=== PATIENT | male | born 1970 | race Caucasian/White ===

== ENCOUNTER → 2020-03-10 07:26 | Outpatient (CLI) | payer BC, SELFPAY ==
--- NOTE | 2020-03-10 07:33 | CT_ITS ---
STUDY: CTA NECK WITH CONTRAST REASON FOR EXAM: Male, 49 years old. CAROTID STENOSIS SEEN ON US, LT EYE PARTIAL BLINDNESS, HX-HTN RADIATION DOSAGE (If Supplied By Facility): CTDIvol = ( 18.09 ) mGy, DLP = ( 634.29 ) mGycm TECHNIQUE: CT angiography with multi-detector data acquisition was performed from the aortic arch to the skull base following intravenous administration of 100ML ISOVUE 370. MIP images were reconstructed from the axial data set. Post-processing of the angiographic images was performed, with multiplanar reformation and 3D reconstruction. Individualized dose optimization techniques were used for this CT. COMPARISON: None. FINDINGS: AORTIC ARCH: There is atherosclerotic calcific plaque formation of the aortic arch and great vessels arising from the aortic arch, without a hemodynamically significant stenosis. There is a bovine origin of the great vessels with a common origin of the brachiocephalic and left common carotid artery. Normal origin of the left subclavian artery. RIGHT CAROTID ARTERIES: Normal right common carotid artery (CCA). Normal right common carotid bulb. Normal origin of the right internal carotid (ICA) artery without a hemodynamically significant stenosis. Normal visualized cervical portion of the right internal carotid artery. Normal origin of the right external carotid artery (ECA). LEFT CAROTID ARTERIES: Normal left common carotid artery (CCA). Normal left common carotid bulb. There is severe atherosclerotic plaque formation of the origin of the left internal carotid artery with a near complete occlusion. I suspect an ulcerated plaque. Normal visualized cervical portion of the left internal carotid artery. Normal origin of the left external carotid artery (ECA). VERTEBRAL ARTERIES: Normal bilateral vertebral arteries. CT/CTA Neck W/WO Contrast IMPRESSION: Near occlusion at the origin of the left internal carotid artery due to a soft plaque and possible ulceration. Electronically Signed: Dewayne Quiros, at 11:19 EDT , Service support ,
== END ==
PROVIDERS: PCP Nurse Practitioner Primary Care; Referring Provider Surgery Vascular Surgery; Visit Provider Surgery Vascular Surgery
DX: I65.22 Occlusion and stenosis of left carotid artery (principal)
CPT/HCPCS: 70498; Q9967

== ENCOUNTER → 2020-04-03 09:44 | Outpatient (CLI) | payer BC, SELFPAY ==
[2020-03-31 09:12] VITALS: BMI 34.9
[2020-04-03 10:53] LABS: AST(SGOT) 77 U/L (15-37); Alanine Aminotransfer ALT/SGPT 142 U/L (16-61); Albumin, Serum 4.1 g/dL (3.2-5.0); Alkaline Phosphatase 58 U/L (45-117); Cholesterol 256 mg/dL (200); Globulin 3.5 g/dL (2.2-4.2); High Density Lipoprotein 58 mg/dL; Protein, Total 7.6 g/dL (6.4-8.2); Triglycerides 326 mg/dL; Very Low Density Lipoprotein 65 mg/dL (5-40)
== END ==
PROVIDERS: PCP Nurse Practitioner Primary Care; Referring Provider Internal Medicine Cardiovascular Disease; Visit Provider Internal Medicine Cardiovascular Disease
DX: E78.5 Hyperlipidemia, unspecified (principal); G45.3 Amaurosis fugax; I77.9 Disorder of arteries and arterioles, unspecified
CPT/HCPCS: 36415; 80061; 80076

== ENCOUNTER → 2020-04-10 12:42 | Outpatient (CLI) | payer BC, SELFPAY ==
[2020-03-31 09:12] VITALS: BMI 34.9
--- NOTE | 2020-04-10 12:43 | ECHOD_ITS ---
Reason For Study: Pre-op clearance Procedure This was a 2D Doppler, Color Flow transthoracic echocardiogram. Exam performed in department. Left Ventricle Normal size and thickness. The estimated ejection fraction is 65 %. Stage 1 diastolic dysfunction. No regional wall motion abnormalities noted. Right Ventricle Normal size and thickness. Normal systolic function. Atria Normal left atrium. Normal right atrium. Normal atrial septum. Mitral Valve The mitral valve is structurally normal. No prolapse or stenosis seen. Trivial mitral valve insufficiency. Tricuspid Valve Normal tricuspid valve. Unable to estimate RV systolic pressure due to insufficient tricuspid regurgitant envelope. Aortic Valve Normal aortic valve. Trisinus/trileaflet aortic valve. Pulmonic Valve Normal pulmonic valve. Great Vessels Normal aortic root. Normal arch. Normal inferior vena cava. Inferior vena cava collapse with sniff. Pericardium/Pleural No pericardial effusion. MMode/2D Measurements & Calculations LVIDd: 4.3 cm IVSd: 0.95 cm Ao root diam: 3.6 cm LVIDs: 3.1 cm LVPWd: 0.96 cm RVDd: 2.7 cm FS: 27.7 % LAV(MOD-bp): 46.1 ml LVAd ap4: 29.6 cm2 SV(MOD-sp4): 46.3 ml LAV(MOD-bp) Indexed: 21.0 ml/m2 EDV(MOD-sp4): 82.1 ml LAV(MOD-sp2): 44.0 ml EDV(sp4-el): 87.1 ml LAV(MOD-sp4): 43.7 ml LVAs ap4: 17.9 cm2 ESV(MOD-sp4): 35.9 ml ESV(sp4-el): 37.0 ml EF(MOD-sp4): 56.3 % EF(sp4-el): 57.5 % SV(sp4-el): 50.1 ml LA A4 area: 15.8 cm2 RA A4 area: 11.3 cm2 Doppler Measurements & Calculations MV E max chris: 63.9 cm/sec Lat Peak E' Chris: 7.8 cm/sec Med Peak E' Chris: 6.2 cm/sec MV A max chris: 93.7 cm/sec E/E' lat: 8.2 E/E' med: 10.3 MV E/A: 0.68 Ao V2 max: 139.2 cm/sec LV V1 max: 116.4 cm/sec PA V2 max: 76.2 cm/sec Ao max P.8 mmHg LV V1 max P.4 mmHg Interpretation Summary The estimated ejection fraction is 65 %. Stage 1 diastolic dysfunction. Trivial mitral valve insufficiency. Unable to estimate RV systolic pressure due to insufficient tricuspid regurgitant envelope. There is no comparison study available. Ordering Physician: Yunior Batista Referring Physician: Leona Rosen Performed By: Anna Zapata RDCS
== END ==
PROVIDERS: PCP Nurse Practitioner Primary Care; Referring Provider Internal Medicine Cardiovascular Disease; Visit Provider Internal Medicine Cardiovascular Disease
DX: Z01.810 Encounter for preprocedural cardiovascular examination (principal); I65.22 Occlusion and stenosis of left carotid artery; G45.3 Amaurosis fugax; I77.9 Disorder of arteries and arterioles, unspecified; I10 Essential (primary) hypertension
CPT/HCPCS: 93306

== ENCOUNTER → 2020-04-16 12:29 | Outpatient (CLI) | payer BC, SELFPAY ==
[2020-03-31 09:12] VITALS: BMI 34.9
--- NOTE | 2020-04-16 12:33 | STEWCON_ITS ---
Reason For Study: PRE-OP CLEARANCE Stress Results Protocol: Stress Echocardiogram Maximum Predicted HR: 170 bpm Target HR: 145 bpm % Maximum Predicted HR: 94 % DurationHeart Rate Stage (mm:ss) (bpm) BP Comment BASELINE 80 120/863 CC DILUTED DEFINITY USED GEORGINA PROTOCOL- STAGE 1 3:00 122 124/84NO SX GEORGINA PROTOCOL- STAGE 2 3:00 139 140/90NO SX GEORGINA PROTOCOL- STAGE 3 3:00 160 148/90NO CP, LEG TIGHTNESS RECOVERY 100 122/88DENIES COMPLAINT Stress Duration: 9:00 mm:ss Maximum Stress HR: 160 bpm Baseline Echocardiogram Findings The estimated ejection fraction is 65 %. Stress Echo Wall motion Data Resting WM Intermediate WM Stress WM Resting Wall Motion Wall Motion Stress No regional wall motion No regional wall motion abnormalities noted. abnormalities noted. EKG Data The baseline ECG displays normal sinus rhythm. The patient exercised according to the regular Georgina protocol for a total duration of 9:00. The maximum heart rate attained was 160 beats per minute. This was 94% of maximum predicted heart rate. The patient exercised into stage 4 of the Georgina protocol. During stress, there were no ST or T wave changes noted to suggest ischemia. No clinical angina was noted. Interpretation Summary The estimated ejection fraction is 65 %. Normal, adequate, treadmill echocardiogram. Negative for ischemia by EKG and echocardiographic criteria. No anginal symptoms noted. Rare PVC noted. Test terminated due to attainment of target heart rate and leg tightness, appropriate blood pressure response to exercise. Final LVEF is 75%. Decrease sensitivity due to poor echo windows requiring Definity agent. No complications. The study was technically difficult. Contrast injection was performed. Ordering Physician: Yunior Batista Referring Physician: Yunior Batista Performed By: Radha Branch, RDCS, RVT
== END ==
PROVIDERS: PCP Nurse Practitioner Primary Care; Referring Provider Internal Medicine Cardiovascular Disease; Visit Provider Internal Medicine Cardiovascular Disease
DX: I65.22 Occlusion and stenosis of left carotid artery (principal); G45.3 Amaurosis fugax; I10 Essential (primary) hypertension; J45.909 Unspecified asthma, uncomplicated
CPT/HCPCS: 93017; 93350; Q9957; A4216; C8928

== ENCOUNTER → 2020-06-01 10:50 | Outpatient (CLI) | payer BC, SELFPAY ==
[2020-03-31 09:12] VITALS: BMI 34.9
== END ==
PROVIDERS: PCP Nurse Practitioner Primary Care; Referring Provider Internal Medicine Cardiovascular Disease; Visit Provider Internal Medicine Cardiovascular Disease
DX: Z01.810 Encounter for preprocedural cardiovascular examination (principal)